=== PATIENT | male | born 1955 | race American Indian/Alaskan Native ===

== ENCOUNTER 2016-12-29 12:58 | Emergency (ER) | payer SELFPAY ==
[2016-12-29] MEDS ORDERED: MAGNESIUM SULFATE 2GM/50ML 2 GM/50 ML BAG IV ONE (13:25)
[2016-12-29] MEDS ORDERED: DUONEB 0.5 MG-3 MG/3 ML SOLN IH ONE (13:25)
[2016-12-29 13:26] LABS: Basophils % (Auto) 0.5 % (0.0-1.8); Eosinophils % (Auto) 8.9 % (0.0-4.3); Hematocrit 44.1 % (35.5-45.6); Hemoglobin 15.2 gm/dl (11.8-15.2); Mean Corpuscular HGB Conc 35 % (32-34); Mean Corpuscular Hemoglobin 26 pg (28-32); Mean Corpuscular Volume 77 fl (84-94); Platelet Count 121 K/mm3 (140-440); Red Blood Count 5.76 M/mm3 (3.65-5.03); White Blood Count 6.2 K/mm3 (4.5-11.0)
--- NOTE | 2016-12-29 13:38 | XRay Report ---
AP CHEST: HISTORY: Shortness of breath AP view of the chest demonstrates a normal mediastinal and cardiac contour with clear lungs and normal bony and soft tissue structures. The ascending aorta is mildly ectatic. IMPRESSION: Unremarkable AP chest.
[2016-12-29 13:52] LABS: Anion Gap 16 mmol/L; Blood Urea Nitrogen 12 mg/dL (9-20); Calcium 8.5 mg/dL (8.4-10.2); Carbon Dioxide 25 mmol/L (22-30); Chloride 103.7 mmol/L (98-107); Glucose 111 mg/dL (75-100); Sodium 141 mmol/L (137-145)
[2016-12-29 15:00] LABS: ISTAT Base Excess 0; ISTAT HCO3 24.3; ISTAT PCO2 38.2 (35-45); ISTAT PH 7.412 (7.35-7.45); ISTAT PO2 75 (80-105); ISTAT SO2 95; ISTAT TCO2 25
[2016-12-29] MEDS ORDERED: APRESOLINE IV ONE (15:40)
--- NOTE | 2016-12-29 15:40 | Emergency Department Report ---
HPI - General Chief Complaint: Dyspnea/Respdistress Time Seen by Provider: 12/29/16 13:24 - HPI HPI: The patient is a 61-year-old male with a history of COPD, presents for evaluation of dyspnea. The patient says atypical were 2 L home O2. The patient reports dyspnea for the past 2 days, constant since its onset, progressive, severe for the past one day, exacerbated with physical activity or standing, improved with sitting forward and rest. He reports associated mild productive cough of clear sputum for the past one to 2 days as well. The patient denies fever, trauma to the chest, chest pain, syncope, hemoptysis, unilateral leg swelling, recent immobilization, history of DVT or PE, recent cancer. ED Past Medical Hx - Past Medical History Previous Medical History?: Yes Hx Hypertension: Yes Hx Congestive Heart Failure: Yes Hx Diabetes: Yes Hx Liver Disease: Yes Hx COPD: Yes Additional medical history: sycope - Surgical History Past Surgical History?: Yes Hx Cholecystectomy: Yes Additional Surgical History: tissue dx. foot right surgery. gallstones. wrist surgery. Jaw bone - Social History Smoking Status: Current Some Day Smoker Substance Use Type: None - Medications Home Medications: Home Medications Medication Instructions Recorded Confirmed Last Taken Type ALPRAZolam [Xanax TAB] 0.25 mg PO TID PRN 05/10/14 05/10/14 05/10/14 History Ammonium Lactate [Amlactin] 567 gm TP BID 05/10/14 05/11/14 05/10/14 History Aspirin EC [Aspirin Enteric Coated 2 tab PO DAILY 05/10/14 05/11/14 05/11/14 History TAB] Budesoni/Formotero 160-4.5(Nf) 2 puff IH BID 05/10/14 05/10/14 05/10/14 History [Symbicort 160-4.5 (Nf)] Calcium Carbonate/Vitamin D3 1 each PO DAILY 05/10/14 05/11/14 05/10/14 History [Calcium 600-Vit D3 400 Tablet] Carvedilol [Coreg] 12.5 mg PO BID 05/10/14 05/11/14 05/10/14 History Cetirizine HCl [Allergy Relief] 10 mg PO DAILY 05/10/14 05/10/14 05/10/14 History Citalopram [Celexa] 40 mg PO QDAY 05/10/14 05/11/14 05/10/14 History Diclofenac Sodium [Voltaren] 1 applicator TD BID 05/10/14 05/11/14 05/10/14 History Gabapentin 300 mg PO BID 05/10/14 05/11/14 05/10/14 History Hydrochlorothiazide 25 mg PO DAILY 05/10/14 05/11/14 05/10/14 History Insulin Detemir [Levemir Flextouch] 20 unit SQ QHS 05/10/14 05/10/14 05/09/14 History Insulin NPL/Insulin Lispro 10 unit SQ QAC 05/10/14 05/10/14 05/10/14 History [Humalog Mix 50-50 Kwikpen] Lisinopril [Zestril] 20 mg PO QDAY 05/10/14 05/11/14 05/10/14 History Montelukast Sodium [Singulair] 10 mg PO DAILY 05/10/14 05/10/14 05/10/14 History Multivitamin [Multi Vitamin Daily] 1 tab PO DAILY 05/10/14 05/11/14 05/10/14 History [place]-3S/Dha/Epa/Fish Oil [Fish 1 each PO BID 05/10/14 05/11/14 05/10/14 History Oil EC 1,200 mg Softgel] Omeprazole [Prilosec] 20 mg PO QDAY 05/10/14 05/11/14 05/10/14 History Prednisone 10 mg PO DAILY 05/10/14 05/10/14 05/10/14 History Sodium Chloride [Saline Mist] 1 spray NS BID 05/10/14 05/10/14 05/10/14 History Tiotropium [Spiriva] 18 mcg IH QDAY 05/10/14 05/10/14 05/10/14 History ALBUTEROL Inhaler [ProAir HFA 2 puff IH Q4-6H PRN #2 box 05/11/14 05/10/1405/10 Rx Inhaler] ALBUTEROL Inhaler [Proair] 2 puff IH QID PRN 05/11/14 05/11/14 05/10/14 History Benzonatate [Tessalon Perles] 100 mg PO Q8HR PRN #14 capsule 05/11/14 Unknown Rx HYDROcodone/ACETAMINOPHEN [Hycet 10 ml PO HS PRN #473 ml 05/11/14 Unknown Rx 7.5 mg-325 mg/15 ml Soln] Insulin Detemir [Levemir Flextouch] 100 unit SQ 05/11/14 05/11/14 05/10/14 History Insulin NPL/Insulin Lispro 100 unit SQ QDAY 05/11/14 05/11/14 05/10/14 History [Humalog Mix 50-50 Kwikpen] Prednisone 20 mg PO QDAY #5 tablet 05/11/14 Unknown Rx Urea/Hyaluronate Sodium [Urea 40% 05/11/14 05/11/14 05/10/14 History Nail Kit] predniSONE [Deltasone] 5 mg PO QDAY 05/11/14 05/11/14 05/10/14 History ALBUTEROL Inhaler [ProAir HFA 2 puff IH QID PRN #1 inhalation 12/29/16 Unknown Rx Inhaler] Azithromycin [Zithromax Z-EUGENE] 250 mg PO QDAY #6 tablet 12/29/16 Unknown Rx Benzonatate [Tessalon Perles] 100 mg PO Q8HR #14 capsule 12/29/16 Unknown Rx predniSONE [Deltasone] 20 mg PO QDAY #5 tab 12/29/16 Unknown Rx ED Review of Systems ROS: Stated complaint: HANNA Other details as noted in HPI Constitutional: denies: fever ENT: denies: throat or neck pain Respiratory: reports cough, shortness of breath Cardiovascular: denies: chest pain Endocrine: denies unexplained weight loss or gain Gastrointestinal: denies: abdominal pain, nausea Genitourinary: denies: dysuria Musculoskeletal: denies: leg swelling Skin: denies: rash Neurological: denies: headache Hematological/Lymphatic: denies: easy bleeding or easy bruising Psych: denies sadness or hopelessness Physical Exam - Physical Exam Vital Signs: Vital Signs 12/29/16 12/29/16 12/29/16 13:00 13:02 13:04 Pulse Rate 82 85 Respiratory 12 13 Rate Blood Pressure 184/119 184/119 O2 Sat by Pulse 94 93 94 Oximetry 12/29/16 12/29/16 12/29/16 13:06 13:08 13:10 Pulse Rate 85 85 87 Respiratory 17 19 21 Rate Blood Pressure 184/119 184/119 184/119 O2 Sat by Pulse 96 96 Oximetry 12/29/16 12/29/16 12/29/16 13:11 13:12 13:14 Pulse Rate 80 81 Respiratory 22 15 20 Rate Blood Pressure 184/119 184/119 O2 Sat by Pulse 96 96 Oximetry 12/29/16 12/29/16 12/29/16 13:15 13:16 13:18 Pulse Rate 82 82 81 Respiratory 24 21 15 Rate Blood Pressure 175/127 175/127 175/127 O2 Sat by Pulse 96 95 96 Oximetry 12/29/16 12/29/16 12/29/16 13:20 13:22 13:24 Pulse Rate 77 81 83 Respiratory 21 15 21 Rate Blood Pressure 175/127 175/127 175/127 O2 Sat by Pulse 97 97 97 Oximetry 12/29/16 12/29/16 12/29/16 13:26 13:28 13:30 Pulse Rate 79 84 80 Respiratory 21 16 14 Rate Blood Pressure 175/127 179/126 179/126 O2 Sat by Pulse 97 95 96 Oximetry 12/29/16 12/29/16 12/29/16 13:32 13:34 13:36 Pulse Rate 80 80 91 H Respiratory 15 13 17 Rate Blood Pressure 179/126 179/126 179/126 O2 Sat by Pulse 96 96 97 Oximetry 12/29/16 12/29/16 12/29/16 13:38 13:40 13:42 Pulse Rate 88 82 81 Respiratory 27 H 22 27 H Rate Blood Pressure 179/126 179/126 179/126 O2 Sat by Pulse 95 95 97 Oximetry 12/29/16 12/29/16 12/29/16 13:44 13:45 13:46 Pulse Rate 78 78 80 Respiratory 25 H 17 20 Rate Blood Pressure 179/126 180/120 180/120 O2 Sat by Pulse 97 94 97 Oximetry 12/29/16 12/29/16 12/29/16 13:48 13:50 13:52 Pulse Rate 83 83 77 Respiratory 13 19 24 Rate Blood Pressure 180/120 180/120 180/120 O2 Sat by Pulse 98 97 97 Oximetry 12/29/16 12/29/16 12/29/16 13:54 13:56 13:58 Pulse Rate 79 83 79 Respiratory 22 13 24 Rate Blood Pressure 180/120 180/120 180/120 O2 Sat by Pulse 97 97 96 Oximetry 12/29/16 14:00 Pulse Rate 79 Respiratory 17 Rate Blood Pressure 180/120 O2 Sat by Pulse 95 Oximetry Physical Exam: \ General: well-nourished, well-developed, no acute distress Head: Normocephalic, atraumatic Eyes: normal sclera ENT: Mucous membranes are pink and moist Neck: trachea midline, neck supple, No neck stiffness, no cervical adenopathy Respiratory: Diminished breath sounds and wheezing present throughout lung ortiz bilaterally Cardio: S1 and S2 present, no murmurs, rubs, gallops, capillary refill is brisk Abdomen: Normoactive bowel sounds, soft abdomen, no rigidity, no guarding or rebound tenderness Chest WALL/Back: No tenderness to palpation of the chest wall, no CVA tenderness with percussion Musc: No pitting edema Skin: No rash Neuro: no facial drooping, normal speech Psych: Normal affect ED Course Vital Signs 12/29/16 12/29/16 12/29/16 13:00 13:02 13:04 Pulse Rate 82 85 Respiratory 12 13 Rate Blood Pressure 184/119 184/119 O2 Sat by Pulse 94 93 94 Oximetry 12/29/16 12/29/16 12/29/16 13:06 13:08 13:10 Pulse Rate 85 85 87 Respiratory 17 19 21 Rate Blood Pressure 184/119 184/119 184/119 O2 Sat by Pulse 96 96 Oximetry 12/29/16 12/29/16 12/29/16 13:11 13:12 13:14 Pulse Rate 80 81 Respiratory 22 15 20 Rate Blood Pressure 184/119 184/119 O2 Sat by Pulse 96 96 Oximetry 12/29/16 12/29/16 12/29/16 13:15 13:16 13:18 Pulse Rate 82 82 81 Respiratory 24 21 15 Rate Blood Pressure 175/127 175/127 175/127 O2 Sat by Pulse 96 95 96 Oximetry 12/29/16 12/29/16 12/29/16 13:20 13:22 13:24 Pulse Rate 77 81 83 Respiratory 21 15 21 Rate Blood Pressure 175/127 175/127 175/127 O2 Sat by Pulse 97 97 97 Oximetry 12/29/16 12/29/16 12/29/16 13:26 13:28 13:30 Pulse Rate 79 84 80 Respiratory 21 16 14 Rate Blood Pressure 175/127 179/126 179/126 O2 Sat by Pulse 97 95 96 Oximetry 12/29/16 12/29/16 12/29/16 13:32 13:34 13:36 Pulse Rate 80 80 91 H Respiratory 15 13 17 Rate Blood Pressure 179/126 179/126 179/126 O2 Sat by Pulse 96 96 97 Oximetry 12/29/16 12/29/16 12/29/16 13:38 13:40 13:42 Pulse Rate 88 82 81 Respiratory 27 H 22 27 H Rate Blood Pressure 179/126 179/126 179/126 O2 Sat by Pulse 95 95 97 Oximetry 12/29/16 12/29/16 12/29/16 13:44 13:45 13:46 Pulse Rate 78 78 80 Respiratory 25 H 17 20 Rate Blood Pressure 179/126 180/120 180/120 O2 Sat by Pulse 97 94 97 Oximetry 12/29/16 12/29/16 12/29/16 13:48 13:50 13:52 Pulse Rate 83 83 77 Respiratory 13 19 24 Rate Blood Pressure 180/120 180/120 180/120 O2 Sat by Pulse 98 97 97 Oximetry 12/29/16 12/29/16 12/29/16 13:54 13:56 13:58 Pulse Rate 79 83 79 Respiratory 22 13 24 Rate Blood Pressure 180/120 180/120 180/120 O2 Sat by Pulse 97 97 96 Oximetry 12/29/16 14:00 Pulse Rate 79 Respiratory 17 Rate Blood Pressure 180/120 O2 Sat by Pulse 95 Oximetry ED Medical Decision Making - Lab Data Result diagrams: 12/29/16 13:15 12/29/16 13:15 - Medical Decision Making The patient was seen and examined by myself. The patient is placed on a miner assistant and continuous pulse ox. On initial evaluation, the patient was found to be in no distress. Evaluation orders were placed. The patient is given a breathing treatment and IV magnesium for txt of COPD. the patient received IV Solu-Medrol via EMS in route. Chest x-ray negative for focal consolidation, pleural effusions, pulmonary congestion, pneumothorax, or other acute cardio pulmonary disease process. Lab results are not concerning. The patient was reevaluated and reported that their symptoms were markedly improved. On reexamination the patient is found to have normal respiratory rate and O2 sat on pulse oximetry, currently 95% on room air, with no costal retractions or diminishment of breath sounds on auscultation. The patient is stable for discharge with outpatient follow-up. The patient is given follow-up and return instructions. The patient expressed understanding and agreed with the plan. The patient is given a prescription for prednisone and azithromycin for treatment of potential acute bronchitis. The patient is discharged in stable condition. Critical care attestation.: If time is entered above; I have spent that time in minutes in the direct care of this critically ill patient, excluding procedure time. ED Disposition Clinical Impression: Acute exacerbation of chronic obstructive pulmonary disease (COPD), Hypertensive urgency Disposition: TO HOME OR SELFCARE Is pt being admited?: No Does the pt Need Aspirin: No Condition: Stable Instructions: Chronic Obstructive Pulmonary Disease (ED), Hypertension (ED) Prescriptions: ALBUTEROL Inhaler [ProAir HFA Inhaler] 2 puff IH QID PRN #1 inhalation PRN Reason: Shortness Of Breath Azithromycin [Zithromax Z-EUGENE] 250 mg PO QDAY #6 tablet Benzonatate [Tessalon Perles] 100 mg PO Q8HR #14 capsule predniSONE [Deltasone] 20 mg PO QDAY #5 tab Referrals: PRIMARY CARE, [Primary Care Provider] - 3-5 Days Time of Disposition: 15:40
[2016-12-29 17:00] VITALS: BP 163/64
== END 2016-12-29 16:45 | disposition home or self-care (01) ==
LOC: ED 12:58
DX: J44.1 Chronic obstructive pulmonary disease with (acute) exacerbation (principal); I10 Essential (primary) hypertension; E11.9 Type 2 diabetes mellitus without complications; I50.9 Heart failure, unspecified; Z72.0 Tobacco use; Z79.82 Long term (current) use of aspirin; Z79.4 Long term (current) use of insulin
CPT/HCPCS: 36415; 71010; 80048; 82803; 83880; 84484; 85025; 93005; 93010; 94640; 96365; 96375; 99285; J0360; J3475

== ENCOUNTER 2020-04-01 13:05 | Emergency (ER) | payer OTHER ==
[2020-04-01 13:24] VITALS: BP 127/84
[2020-04-01] MEDS ORDERED: MAGNESIUM SULFATE 2 GM/50 ML BAG IV ONE (14:10)
[2020-04-01] MEDS ORDERED: methylPREDNISolone Sod Succinate 125 MG/2 ML INJ IV ONE (14:10)
[2020-04-01] MEDS ORDERED: IPRATROPIUM 0.02% NEBU 2.5 ML IH ONE (14:10)
[2020-04-01] MEDS ORDERED: ALBUTEROL 2.5 MG/3 ML NEBU IH ONE (14:10)
--- NOTE | 2020-04-01 14:49 | XRay Report ---
CHEST 1 VIEW INDICATION: cough, sob. COMPARISON: 12/29/2016 FINDINGS: Support devices: None. Heart: Within normal limits. Lungs/Pleura: No acute air space or interstitial disease. Additional findings: None. IMPRESSION: No acute findings. Signer Name: Shady Sanford Jr, MD Signed: 04/01/2020 2:45 PM Workstation Name: [id number]
--- NOTE | 2020-04-01 15:22 | Emergency Department Report ---
ED Asthma HPI - General Chief Complaint: Dyspnea/Respdistress Stated Complaint: HANNA Time Seen by Provider: 04/01/20 14:09 Source: patient, EMS Mode of arrival: Stretcher Limitations: No Limitations - History of Present Illness Initial Comments: Patient is a 64-year-old F [place] male who is presenting with 2 to 3 days of shortness of breath. Patient has COPD and should be on oxygen 24 hours a day. Patient is also on daily prednisone. He ran out of his prednisone 3 days ago and has been taking neb treatments with no relief. Patient states he was very short of breath today and during the walk he felt near syncopal called paramedics. Patient was not wearing his oxygen at the time of the walk. He has had some cough yesterday but none today. Denies fever body aches decreased in his taste and smell. - Related Data Home Medications Medication Instructions Recorded Confirmed Last Taken ALPRAZolam [Xanax TAB] 0.25 mg PO TID PRN 05/10/14 05/10/14 05/10/14 Ammonium Lactate [Amlactin] 567 gm TP BID 05/10/14 05/11/14 05/10/14 Aspirin EC [Halfprin EC] 2 tab PO DAILY 05/10/14 05/11/14 05/11/14 Budesoni/Formotero 160-4.5(Nf) 2 puff IH BID 05/10/14 05/10/14 05/10/14 [Symbicort 160-4.5 (Nf)] Calcium Carbonate/Vitamin D3 1 each PO DAILY 05/10/14 05/11/14 05/10/14 [Calcium 600-Vit D3 400 Tablet] Cetirizine HCl [Allergy Relief] 10 mg PO DAILY 05/10/14 05/10/14 05/10/14 Citalopram [Celexa] 40 mg PO QDAY 05/10/14 05/11/14 05/10/14 Diclofenac Sodium [Voltaren] 1 applicator TD BID 05/10/14 05/11/14 05/10/14 Gabapentin 300 mg PO BID 05/10/14 05/11/14 05/10/14 Insulin Detemir (Nf) [Levemir 20 unit SQ QHS 05/10/14 05/10/14 05/09/14 Flextouch] Insulin Lispro Protamin/Lispro 10 unit SQ QAC 05/10/14 05/10/14 05/10/14 [Humalog Mix 50-50 Kwikpen] Montelukast Sodium [Singulair] 10 mg PO DAILY 05/10/14 05/10/14 05/10/14 Multivitamin [Multi Vitamin Daily] 1 tab PO DAILY 05/10/14 05/11/14 05/10/14 [place]-3S/Dha/Epa/Fish Oil [Fish 1 each PO BID 05/10/14 05/11/14 05/10/14 Oil EC 1,200 mg Softgel] Omeprazole [Prilosec] 20 mg PO QDAY 05/10/14 05/11/14 05/10/14 Sodium Chloride [Saline Mist] 1 spray NS BID 05/10/14 05/10/14 05/10/14 Tiotropium [Spiriva] 18 mcg IH QDAY 05/10/14 05/10/14 05/10/14 carvediloL [Coreg] 12.5 mg PO BID 05/10/14 05/11/14 05/10/14 hydroCHLOROthiazide 25 mg PO DAILY 05/10/14 05/11/14 05/10/14 [Hydrochlorothiazide] lisinopriL [Zestril] 20 mg PO QDAY 05/10/14 05/11/14 05/10/14 predniSONE [Prednisone] 10 mg PO DAILY 05/10/14 05/10/14 05/10/14 Albuterol Mdi (or & Nicu Only) 2 puff IH QID PRN 05/11/14 05/11/14 05/10/14 [Proair] Insulin Detemir (Nf) [Levemir 100 unit SQ 05/11/14 05/11/14 05/10/14 Flextouch] Insulin Lispro Protamin/Lispro 100 unit SQ QDAY 05/11/14 05/11/14 05/10/14 [Humalog Mix 50-50 Kwikpen] Urea/Hyaluronate Sodium [Urea 40% 05/11/14 05/11/14 05/10/14 Nail Kit] predniSONE [Deltasone] 5 mg PO QDAY 05/11/14 05/11/14 05/10/14 Previous Rx's Medication Instructions Recorded Last Taken Type Albuterol Mdi (or & Nicu Only) 2 puff IH Q4-6H PRN #2 box 05/11/14 05/10/14 Rx [ProAir HFA Inhaler] Benzonatate [Tessalon Perles] 100 mg PO Q8HR PRN #14 capsule 05/11/14 Unknown Rx HYDROcodone/ACETAMINOPHEN [Hycet 10 ml PO HS PRN #473 ml 05/11/14 Unknown Rx 7.5 mg-325 mg/15 ml Soln] predniSONE [Prednisone] 20 mg PO QDAY #5 tablet 05/11/14 Unknown Rx Albuterol Mdi (or & Nicu Only) 2 puff IH QID PRN #1 inhalation 12/29/16 Unknown Rx [ProAir HFA Inhaler] Azithromycin [Zithromax Z-EUGENE] 250 mg PO QDAY #6 tablet 12/29/16 Unknown Rx Benzonatate [Tessalon Perles] 100 mg PO Q8HR #14 capsule 12/29/16 Unknown Rx predniSONE [Deltasone] 20 mg PO QDAY #5 tab 12/29/16 Unknown Rx ALBUTEROL NEB's [Proventil 0.083% 5 mg IH TID PRN #20 neb 04/01/20 Unknown Rx NEBS] Albuterol Mdi (or & Nicu Only) 2 puff IH QID PRN #1 inhalation 04/01/20 Unknown Rx [ProAir HFA Inhaler] Azithromycin [Zithromax Z-EUGENE] 250 mg PO DAILY #6 tablet 04/01/20 Unknown Rx predniSONE [Deltasone] 10 mg PO QDAY #30 tab 04/01/20 Unknown Rx Allergies Allergy/AdvReac Type Severity Reaction Status Date / Time fentanyl Allergy Nausea Verified 05/10/14 23:25 hydromorphone HCl Allergy Nausea Verified 05/10/14 23:25 [From Dilaudid] ibuprofen [From Motrin] Allergy Nausea Verified 05/10/14 23:25 nitroglycerin Allergy Unknown Verified 05/10/14 23:25 [From Nitro-Bid] tramadol Allergy Nausea Verified 05/10/14 23:25 ED Review of Systems ROS: Stated complaint: HANNA Other details as noted in HPI Comment: All other systems reviewed and negative ED Past Medical Hx - Past Medical History Hx Hypertension: Yes Hx Congestive Heart Failure: Yes Hx Diabetes: Yes Hx Liver Disease: Yes Hx COPD: Yes Additional medical history: syncope - Surgical History Hx Cholecystectomy: Yes Additional Surgical History: tissue dx. foot right surgery. gallstones. wrist surgery. Jaw bone - Social History Smoking Status: Former Smoker - Medications Home Medications: Home Medications Medication Instructions Recorded Confirmed Last Taken Type ALPRAZolam [Xanax TAB] 0.25 mg PO TID PRN 05/10/14 05/10/14 05/10/14 History Ammonium Lactate [Amlactin] 567 gm TP BID 05/10/14 05/11/14 05/10/14 History Aspirin EC [Halfprin EC] 2 tab PO DAILY 05/10/14 05/11/14 05/11/14 History Budesoni/Formotero 160-4.5(Nf) 2 puff IH BID 05/10/14 05/10/14 05/10/14 History [Symbicort 160-4.5 (Nf)] Calcium Carbonate/Vitamin D3 1 each PO DAILY 05/10/14 05/11/14 05/10/14 History [Calcium 600-Vit D3 400 Tablet] Cetirizine HCl [Allergy Relief] 10 mg PO DAILY 05/10/14 05/10/14 05/10/14 History Citalopram [Celexa] 40 mg PO QDAY 05/10/14 05/11/14 05/10/14 History Diclofenac Sodium [Voltaren] 1 applicator TD BID 05/10/14 05/11/14 05/10/14 History Gabapentin 300 mg PO BID 05/10/14 05/11/14 05/10/14 History Insulin Detemir (Nf) [Levemir 20 unit SQ QHS 05/10/14 05/10/14 05/09/14 History Flextouch] Insulin Lispro Protamin/Lispro 10 unit SQ QAC 05/10/14 05/10/14 05/10/14 History [Humalog Mix 50-50 Kwikpen] Montelukast Sodium [Singulair] 10 mg PO DAILY 05/10/14 05/10/14 05/10/14 History Multivitamin [Multi Vitamin Daily] 1 tab PO DAILY 05/10/14 05/11/14 05/10/14 History [place]-3S/Dha/Epa/Fish Oil [Fish 1 each PO BID 05/10/14 05/11/14 05/10/14 History Oil EC 1,200 mg Softgel] Omeprazole [Prilosec] 20 mg PO QDAY 05/10/14 05/11/14 05/10/14 History Sodium Chloride [Saline Mist] 1 spray NS BID 05/10/14 05/10/14 05/10/14 History Tiotropium [Spiriva] 18 mcg IH QDAY 05/10/14 05/10/14 05/10/14 History carvediloL [Coreg] 12.5 mg PO BID 05/10/14 05/11/14 05/10/14 History hydroCHLOROthiazide 25 mg PO DAILY 05/10/14 05/11/14 05/10/14 History [Hydrochlorothiazide] lisinopriL [Zestril] 20 mg PO QDAY 05/10/14 05/11/14 05/10/14 History predniSONE [Prednisone] 10 mg PO DAILY 05/10/14 05/10/14 05/10/14 History Albuterol Mdi (or & Nicu Only) 2 puff IH Q4-6H PRN #2 box 05/11/14 05/10/14 05/10/14 Rx [ProAir HFA Inhaler] Albuterol Mdi (or & Nicu Only) 2 puff IH QID PRN 05/11/14 05/11/14 05/10/14 History [Proair] Benzonatate [Tessalon Perles] 100 mg PO Q8HR PRN #14 capsule 05/11/14 Unknown Rx HYDROcodone/ACETAMINOPHEN [Hycet 10 ml PO HS PRN #473 ml 05/11/14 Unknown Rx 7.5 mg-325 mg/15 ml Soln] Insulin Detemir (Nf) [Levemir 100 unit SQ 05/11/14 05/11/14 05/10/14 History Flextouch] Insulin Lispro Protamin/Lispro 100 unit SQ QDAY 05/11/14 05/11/14 05/10/14 History [Humalog Mix 50-50 Kwikpen] Urea/Hyaluronate Sodium [Urea 40% 05/11/14 05/11/14 05/10/14 History Nail Kit] predniSONE [Deltasone] 5 mg PO QDAY 05/11/14 05/11/14 05/10/14 History predniSONE [Prednisone] 20 mg PO QDAY #5 tablet 05/11/14 Unknown Rx Albuterol Mdi (or & Nicu Only) 2 puff IH QID PRN #1 inhalation 12/29/16 Unknown Rx [ProAir HFA Inhaler] Azithromycin [Zithromax Z-EUGENE] 250 mg PO QDAY #6 tablet 12/29/16 Unknown Rx Benzonatate [Tessalon Perles] 100 mg PO Q8HR #14 capsule 12/29/16 Unknown Rx predniSONE [Deltasone] 20 mg PO QDAY #5 tab 12/29/16 Unknown Rx ALBUTEROL NEB's [Proventil 0.083% 5 mg IH TID PRN #20 neb 04/01/20 Unknown Rx NEBS] Albuterol Mdi (or & Nicu Only) 2 puff IH QID PRN #1 inhalation 04/01/20 Unknown Rx [ProAir HFA Inhaler] Azithromycin [Zithromax Z-EUGENE] 250 mg PO DAILY #6 tablet 04/01/20 Unknown Rx predniSONE [Deltasone] 10 mg PO QDAY #30 tab 04/01/20 Unknown Rx ED Physical Exam - General Limitations: No Limitations General appearance: alert, in no apparent distress - Head Head exam: Present: atraumatic, normocephalic - Eye Eye exam: Present: normal appearance, PERRL, EOMI - ENT ENT exam: Present: mucous membranes moist - Neck Neck exam: Present: normal inspection - Respiratory Respiratory exam: Present: respiratory distress, wheezes, prolonged expiratory. Absent: normal lung sounds bilaterally, rales, rhonchi - Cardiovascular Cardiovascular Exam: Present: regular rate, normal rhythm, normal heart sounds. Absent: systolic murmur, diastolic murmur, rubs, gallop - GI/Abdominal GI/Abdominal exam: Present: soft, normal bowel sounds. Absent: distended, te nderness, guarding, rebound, rigid - Rectal Rectal exam: Present: deferred - Extremities Exam Extremities exam: Present: normal inspection - Back Exam Back exam: Present: normal inspection - Neurological Exam Neurological exam: Present: alert, oriented X3 - Psychiatric Psychiatric exam: Present: normal affect, normal mood - Skin Skin exam: Present: warm, dry, intact, normal color. Absent: rash ED Course Vital Signs 04/01/20 04/01/20 13:23 13:24 Temperature 98.6 F Pulse Rate 103 H Respiratory 20 Rate Blood Pressure 127/84 [Left] O2 Sat by Pulse 93 93 Oximetry ED Medical Decision Making - Lab Data Result diagrams: 04/01/20 14:57 04/01/20 14:57 - Radiology Data [facility] [address] [place] [address] XRay Report Signed Patient: LIANG KELSEY MR#: [id number] : 1955 Acct:[id number] Age/Sex: 64 / M ADM Date: 04/01/20 Loc: ED Attending Dr: Ordering Physician: RACHAEL VELASCO MD Date of Service: 04/01/20 Procedure(s): XR chest 1V ap Accession Number(s): [id number] cc: RACHAEL VELASCO MD Fluoro Time In Minutes: CHEST 1 VIEW INDICATION: cough, sob. COMPARISON: 12/29/2016 FINDINGS: Support devices: None. Heart: Within normal limits. Lungs/Pleura: No acute air space or interstitial disease. Additional findings: None. IMPRESSION: No acute findings. Signer Name: Shady Sanford Jr, MD Signed: 04/01/2020 2:45 PM Workstation Name: [id number] - Medical Decision Making Patient received hour-long neb treatment. His lungs are clear the feels much i mproved. Patient be discharged home Critical care attestation.: If time is entered above; I have spent that time in minutes in the direct care of this critically ill patient, excluding procedure time. ED Disposition Clinical Impression: COPD exacerbation Disposition: DC-01 TO HOME OR SELFCARE Is pt being admited?: No Does the pt Need Aspirin: No Condition: Stable Instructions: Chronic Obstructive Pulmonary Disease (ED) Referrals: KIMBER CASANOVA [Other] - 3-5 Days Time of Disposition: 16:00
[2020-04-01 15:48] LABS: Blood Urea Nitrogen 7 mg/dL (9-20); Calcium 8.6 mg/dL (8.4-10.2); Hemolysis Index 2
[2020-04-01 15:49] LABS: BUN/Creatinine Ratio 12
[2020-04-01 15:54] LABS: Basophils % (Auto) 0.2 % (0.0-1.8); Eosinophils # (Auto) 0.1 K/mm3 (0.0-0.4); Eosinophils % (Auto) 2.1 % (0.0-4.3); Hematocrit 47.2 % (35.5-45.6); Lymphocytes # (Auto) 0.5 K/mm3 (1.2-5.4); Lymphocytes % (Auto) 7.4 % (13.4-35.0); Mean Corpuscular HGB Conc 34 % (32-34); Mean Corpuscular Volume 76 fl (84-94); Monocytes # (Auto) 0.2 K/mm3 (0.0-0.8); Monocytes % (Auto) 3.7 % (0.0-7.3); Platelet Count 125 K/mm3 (140-440); Red Cell Distribution Width 15.1 % (13.2-15.2)
== END 2020-04-01 16:26 | disposition home or self-care (01) ==
LOC: ED 13:05
DX: J44.1 Chronic obstructive pulmonary disease with (acute) exacerbation (principal); I50.9 Heart failure, unspecified; I11.0 Hypertensive heart disease with heart failure; E11.9 Type 2 diabetes mellitus without complications; Z90.49 Acquired absence of other specified parts of digestive tract; Z98.890 Other specified postprocedural states; Z87.891 Personal history of nicotine dependence; Z79.4 Long term (current) use of insulin; Z79.2 Long term (current) use of antibiotics; Z79.899 Other long term (current) drug therapy; Z88.8 Allergy status to other drugs, medicaments and biological substances
CPT/HCPCS: 36415; 71045; 80048; 85025; 94640